=== PATIENT | female | born 1985 | race Hispanic/Latino ===

== ENCOUNTER 2018-04-26 09:43 | Emergency (ER) | payer OTHER ==
[~2018-04-26] VITALS: Ht 167.6 cm; Wt 67.6 kg
[~2018-04-26 09:43] MED LIST: BIOTIN2500 MCG PO; CYCLOBENZAPRINE10 M1 PO; DOXYCYCLINE HY100 M2 PO; IBUPROFEN800 M1 PO; MOBIC15 M1 PO; MULTI-DAY VITA1 EACH PO; TRAMADOL HCL50 M1 PO
[2018-04-26 09:49] VITALS: BP 112/74
[2018-04-26] MEDS ORDERED: AUGMENTIN 875-1 EACH PO (10:08)
[2018-04-26] MEDS ORDERED: POLYTRIM EYE DR10 ML TOP (10:08)
--- NOTE | 2018-04-26 10:09 | ED EYE COMPLAINT ---
History of Present Illness General Chief Complaint: Eye Problems Stated Complaint: SWOLLEN EYE Source: patient Exam Limitations: no limitations Vital Signs & Intake/Output Vital Signs & Intake/Output Vital Signs Date Time Temp Pulse Resp B/P B/P Pulse O2 O2 Flow FiO2 Mean Ox Delivery Rate 04/26 0949 96.0 64 16 112/74 98 Room Air Allergies Coded Allergies: No Known Allergies (01/30/16) Reconcile Medications Biotin (Unknown Strength) CAPSULE (Unknown Dose) PO DAILY SUPPLEMENT ( Reported) Ibuprofen 800 MG TABLET 1 TAB PO TID PRN PAIN Multivitamin (Multi-Day Vitamins) 1 EACH TABLET 1 TAB PO DAILY SUPPLEMENT ( Reported) Tramadol HCl 50 MG TABLET 1 TAB PO BIDP PRN BREAKTHROUGH PAIN Triage Note: 32 Y/O OLD WOKE TODAY WITH SWELLING, REDNESS AND DRAINAGE TO L EYE. DENIES INVOLVEMENT OF R EYE. Triage Nurses Notes Reviewed? yes : No Patient currently breastfeeds: No HPI: 32-year-old female with no major medical problems presents with left eye swelling, pain and irritation with watery and white discharge. Symptoms started approximately 3 days ago. She denies any fevers or chills. She denies any visual deficits. There is no photophobia. Prior treatment includes placing of warm tea bag over her eye. Patient denies any trauma to the eye. Past History Travel History Traveled to [place] past 21 day No Medical History Any Pertinent Medical History? none Neurological: NONE EENT: NONE Cardiovascular: NONE Respiratory: NONE Gastrointestinal: NONE Hepatic: NONE Renal: NONE Musculoskeletal: NONE Psychiatric: NONE Endocrine: NONE Blood Disorders: NONE Cancer(s): NONE METALLURGICAL TESTER/Reproductive: NONE Tetanus Vaccine: 01/21/16 Surgical History Surgical History: non-contributory Psychosocial History What is your primary language Wallisian Tobacco Use: Never used Illicit Drug Use: marijuana Family History Hx Contributory? No Review of Systems Review of Systems Constitutional: Denies: no symptoms. Eyes: Reports: see HPI, drainage, pain, glasses. Denies: decreased acuity, foreign body sensation, photophobia, previous injury, vision change, contact lenses. Ear: Denies: no symptoms. Nose: Denies: no symptoms. Mouth: Denies: no symptoms. Throat: Denies: no symptoms. Respiratory: Denies: no symptoms. Cardiovascular: Denies: no symptoms, see HPI, chest pain, edema, orthopena, palpitations, peripheral edema, syncope. GI: Denies: no symptoms. Genitourinary: Denies: no symptoms. Musculoskeletal: Denies: no symptoms. Skin: Denies: no symptoms. Neurological/Psychological: Denies: no symptoms. All Other Systems: Reviewed and Negative Physical Exam General Appearance: well developed/nourished, no apparent distress, alert, awake General Inspection: periorbital edema, mild erythema, mild tenderness to palpation, watery discharge Eyelid: edema Conjunctiva/Sclera: injected Cornea: normal inspection EOM: intact Pupil: normal accommodation, normal pupil, PERRL General Inspection: normal inspection Physical Exam Head: atraumatic, normal appearance Neck: normal inspection, supple Skin: intact Progress Differential Diagnosis: conjunctivitis, cellulitis Plan of Care: Discharge home, topical and oral ABX. Return for worsening symptoms, follow up with PMD 2-5 days. Departure Departure Disposition: HOME OR SELF CARE Condition: Stable Clinical Impression Primary Impression: Periorbital cellulitis of left eye Secondary Impressions: Conjunctivitis Referrals: Patient Has No Primary Care Dr (PCP/Family) Departure Forms: Customer Survey General Discharge Information Prescriptions: Current Visit Scripts Amoxicillin/Potassium Clav (Augmentin 875-125 Tablet) 1 TAB PO BID #20 TAB Polytrim (Polytrim Eye Drops) 2 DROP TOP Q4H #1 BOT
== END 2018-04-26 10:16 ==
LOC: ERH 09:43
DX: H05.012 Cellulitis of left orbit (principal); H10.9 Unspecified conjunctivitis; F12.10 Cannabis abuse, uncomplicated